=== PATIENT | male | born 1980 | race African-American/Black ===

== ENCOUNTER 2018-04-09 01:23 | Inpatient (IN) | payer OTHER ==
[~2018-04-09] VITALS: Ht 170.2 cm; Wt 61.4 kg
--- NOTE | 2018-04-09 02:00 | NUR ---
PT BIBRA C/O GENERALIZED ABDOMINAL PAIN X1 DAY, +N/V/D. PT DENIES SOB, CHEST PAIN, HEADACHE, DIZZINESS. PT AAOX4. RESPIRATIONS EVEN AND UNLABORED. SKIN WARM AND INTACT. NO ACUTE DISTRESS NOTED AT THIS TIME. WILL CONTINUE TO MONITOR
[2018-04-09] MEDS ORDERED: ONDANSETRON HCL/PF 4 MG/2 ML VIAL ONE (02:22)
[2018-04-09] MEDS ORDERED: HYDROMORPHONE INJ 0.5 MG/0.5 ML SYRINGE ONE (02:23)
[2018-04-09] MEDS ORDERED: IV NS 0.9% 1,000 ML BAG IV ONE (02:30)
[2018-04-09] MEDS ORDERED: ONDANSETRON HCL/PF 4 MG/2 ML VIAL IVP ONE (02:30)
[2018-04-09] MEDS ORDERED: HYDROMORPHONE INJ 2 MG/ML DISP.SYRIN IV ONE (02:30)
--- NOTE | 2018-04-09 02:30 | NUR ---
PT UNABLE TO PROVIDE URINE SAMPLE AT THIS TIME, AWARE
--- NOTE | 2018-04-09 02:30 | NUR ---
IV INITIATED RIGHT AC 18G. LABS DRAWN FROM SITE. ATHLETIC FIELD CUSTODIAN AT BEDSIDE FOR BLOOD DRAW. IV INTACT AND PATENT, PLACED ON SALINE LOCK
[2018-04-09 02:38] LABS: BASOPHILS % (AUTO) 0.7 % (0.0-2.0); EOSINOPHILS % (AUTO) 2.2 % (0.0-6.0); HEMATOCRIT 48 % (39-51); HEMOGLOBIN 15.9 g/dL (13.5-17.5); LYMPHOCYTES % (AUTO) 28.4 % (20.0-44.0); MEAN CORPUSCULAR HGB CONC 33 g/dl (31.0-36.0); MEAN CORPUSCULAR VOLUME 87 fL (80-96); MONOCYTES # (AUTO) 0.5 /CMM (0.1-1.30); MONOCYTES % (AUTO) 7.5 % (2.0-12.0); NEUTROPHILS # (AUTO) 4.2 /CMM (1.8-8.9); NEUTROPHILS % (AUTO) 61.2 % (43.0-81.0); PLATELET COUNT (AUTO) 442 /CMM (150-450); RED BLOOD CELL COUNT(AUTO) 5.52 MIL/uL (4.5-6.0); WHITE BLOOD COUNT (AUTO) 6.9 K/uL (4.3-11.0)
[2018-04-09] MEDS ORDERED: CT SWABBABLE VALVE TRANS SET 1 EA INFUS.SET MC ONE (02:49)
[2018-04-09] MEDS ORDERED: IV NS 0.9% 250 ML IV ONE (02:49)
[2018-04-09] MEDS ORDERED: IOHEXOL-300 100 ML VIAL IV ONE (02:49)
[2018-04-09 02:53] LABS: ALBUMIN 3.6 g/dL (3.4-5.0); BILIRUBIN,DIRECT 0.1 mg/dL (0.0-0.2); BILIRUBIN,TOTAL 0.3 mg/dL (0.2-1.0); CALCIUM, SERUM 9.2 mg/dL (8.5-10.1); CREATININE 0.8 mg/dL (0.6-1.3); POTASSIUM 3.9 mmol/L (3.5-5.1); TOTAL PROTEIN, SERUM 7.9 g/dL (6.4-8.2)
--- NOTE | 2018-04-09 03:13 | NUR ---
PT BROUGHT BY RADIOLOGY FOR CT
--- NOTE | 2018-04-09 03:20 | NUR ---
PT UNABLE TO PROVIDE URINE SAMPLE AT THIS TIME, AWARE
--- NOTE | 2018-04-09 04:21 | NUR ---
PT UNABLE TO PROVIDE URINE SAMPLE AT THIS TIME. MD RODNEY
[2018-04-09] MEDS ORDERED: PIPERACILLIN /TAZOBACTAM 3.375 G in IV D5W 50 ML IV ONE (05:00)
[2018-04-09] MEDS ORDERED: PIPERACILLIN /TAZOBACTAM 3.375 G VIAL IV ONE (05:24)
[2018-04-09] MEDS ORDERED: MAGNESIUM HYDROXIDE 30 ML UDC PO PRN (05:30)
[2018-04-09] MEDS ORDERED: METRONIDAZOLE 500MG/ NS 100ML 500 MG in PREMIX 1 EA IV SCH ×2 (05:30→18:00)
[2018-04-09] MEDS ORDERED: ONDANSETRON HCL/PF 4 MG/2 ML VIAL IVP PRN (05:30)
[2018-04-09] MEDS ORDERED: ZOLPIDEM TARTRATE 5 MG TABLET PO PRN (05:30)
[2018-04-09] MEDS ORDERED: MAG HYDROX/AL HYDROX/SIMETH 30 ML UDC PO PRN (05:30)
[2018-04-09] MEDS ORDERED: HYDROCODONE/APAP 5/325MG 1 EACH TABLET PO PRN (05:30)
[2018-04-09] MEDS ORDERED: ACETAMINOPHEN 325 MG TABLET PO PRN (05:30)
[2018-04-09] MEDS ORDERED: HYDROMORPHONE INJ 2 MG/ML DISP.SYRIN IV PRN (05:30)
[2018-04-09 05:56] LABS: MAGNESIUM 1.7 mg/dL (1.8-2.4); PHOSPHORUS 3.8 mg/dL (2.5-4.9)
--- NOTE | 2018-04-09 06:21 | NUR ---
GAVE REPORT TO MIRANDA MILTON FOR JACI
--- NOTE | 2018-04-09 06:30 | NUR ---
PT TRANSFERRED VIA GURNEY TO [facility] WITH EMT
[2018-04-09 07:00] VITALS: BP 120/67
--- NOTE | 2018-04-09 07:30 | NUR ---
RN OPENING NOTES RECEIVED PATIENT ASLEEP IN BED, EASILY AROUSABLE. A/OX4 ABLE TO MAKE NEEDS KNOWN. TOLERATING ROOM AIR. NOT IN ANY FORM OF DISTRESS. NO SOB. NO COMPLAINTS OF PAIN OR DISCOMFORT AT THIS TIME. IV ACCESS INTACT AND PATENT, IVF NS @ 100ML/HR. PATIENT SAID HE HAS NO WOUNDS, REFUSED BODY CHECK AND PHOTOS FOR NOW. PER PATIENT, "LET ME REST FOR NOW MAN!". ADMITTING ORDERS NOTED AND WILL CARRY OUT. BED IN LOW/LOCKED, BED IN LOW/LOCKED POSITION, SIDERAILS UPX2, CALL LIGHT IN REACH. WILL CONTINUE TO MONITOR ACCORDINGLY.
[2018-04-09 08:00] VITALS: BP 109/68
[2018-04-09] MEDS: IV NS 0.9% 1,000 ML IV PRN (08:43)
[2018-04-09] MEDS: PANTOPRAZOLE 40 MG VIAL IV SCH (08:54)
--- NOTE | 2018-04-09 09:00 | NUR ---
RN NOTES THERE'S NO BELONGINGS CHECKLIST FROM ER. NEW CHECKLIST DONE. PATIENT AGREED TO CHECK HIS BELONGINGS. FORM SIGNED
[2018-04-09] MEDS: METRONIDAZOLE 500MG/ NS 100ML 500 MG in PREMIX 1 EA IV SCH ×2 (10:28→17:17)
--- NOTE | 2018-04-09 11:10 | NUR ---
Social service consult requested by GEOVANNA Maza for homelessness. Pt. is a 37 year old male who was admitted to [facility] for Enterocolitis. Pt. has a history of asthma and "colitis" 2 years ago and who presented to the emergency Department complaining of 24 hours of abdominal pain with associated vomiting and diarrhea. SW met with pt. bedside. Pt. is alert and oriented x 4. Pt's appearance is clean. Pt. had the hospital gown over his clothes. Pt's speech is calm. Pt. is pleasant and cooperative with SW. Pt. states he is homeless. Pt. is originally from [place]. Pt. states he has been homeless for the past three years. Pt. receives [employer] and [employer] [place] monthly. 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 Pt. denies alcohol use. Pt. uses marijuana daily and smokes 1/2 pack of cigarettes per day. [facility] offered pt. referrals to drug treatment programs, however pt. declined stating, " it's not that serious." [facility] offered pt. winter prison placement. Pt. states, " I do not like the shelters, but I will take the resources." SW to give pt. Homeless Patient resources and winter prison placement resources prior to discharge. Homeless Patient Waiver Form to be signed by pt. upon discharge. Pt. will require TAP card upon D/C. No other social service needs are required at this time. SW is available, if needed. [facility] updated Med Surg 3 NICOLETTE Schwartz and bilingual patient support caseworker Selina Braswell regarding pt's discharge plan.
[2018-04-09] MEDS: Magnesium 1GM/D5W 100ML PREMIX 100 ML IV SCH ×3 (11:51→14:30)
[2018-04-09 13:45] LABS: APPEARANCE,URINE CLEAR (CLEAR); BILIRUBIN,URINE NEGATIVE (NEGATIVE); BLOOD, URINE NEGATIVE Ery/uL (NEGATIVE); COLOR,URINE YELLOW (YELLOW); KETONES,URINE NEGATIVE (NEGATIVE); LEUKOCYTE ESTERASE ,URINE NEGATIVE (NEGATIVE); NITRITE, URINE NEGATIVE (NEGATIVE); PH,URINE 5.5 (5.0-8.0); PROTEIN,URINE NEGATIVE (NEGATIVE); UGLUCOSE NEGATIVE (NEGATIVE); UROBILINOGEN,URINE 0.2 EU/dL (0.2)
[2018-04-09 16:00] VITALS: BP 140/85
--- NOTE | 2018-04-09 19:05 | NUR ---
RN MS NOTES RECEIVED PATIENT IN BED AWAKE ALERT AND ORIENTED X4, ABLE TO MAKE NEEDS KNOWN, RESPIRATIONS EVEN AND UNLABORED WITH EQUAL RISE AND FALL OF CHEST, DENIES ANY PAIN OR DISCOMFORT AT THIS TIME, REFUSES BODY ASSESSMENT AND PICTURES AT THIS TIME, WILL CONTINUE TO TRY TO ASSESS, IV SITE TO RIGHT AC#18G INTACT AND PATENT, NO REDNESS, NO INFILTRATION PRESENT,IVF RUNNING ORDERED,PATIENT MADE AWARE NEED TO COLLECT STOOL VERBALIZES HE UNDERSTANDS.CALL LIGHT KEPT WITHIN REACH, ALL NEEDS ATTENDED AT THIS TIME, ORIENTED TO STAFF, SAFETY PRECAUTIONS IN PLACE, LOW BED AND LOCKED, BED ALARM IN PLACE, REMAINS COMFORTABLE AT THIS TIME, WILL CONTINUE TO MONITOR AND ATTEND TO NEEDS.
--- NOTE | 2018-04-09 19:37 | NUR ---
RN CLOSING NOTES PATIENT IN STABLE CONDITION. ALL NEEDS ATTENDED AND PROVIDED. ALL DUE MEDICATIONS ADMINISTERED ORDERED. KEPT PATIENT SAFE AN COMFORTABLE. BED IN LOW/LOCKED POSITION, SIDERAILS UPX2, CALL LIGHT IN REACH. ENDORSED TO NIGHT RN FOR JACI.
[2018-04-09 20:00] VITALS: BP 120/61
[2018-04-09 20:07] VITALS: BP 120/61
[2018-04-10] MEDS: METRONIDAZOLE 500MG/ NS 100ML 500 MG in PREMIX 1 EA IV SCH ×3 (00:33→17:30)
[2018-04-10] MEDS: IV NS 0.9% 1,000 ML IV PRN ×2 (00:34→22:01)
[2018-04-10 06:16] LABS: BASOPHILS % (AUTO) 0.5 % (0.0-2.0); EOSINOPHILS % (AUTO) 2.8 % (0.0-6.0); HEMATOCRIT 38 % (39-51); HEMOGLOBIN 13.2 g/dL (13.5-17.5); LYMPHOCYTES # (AUTO) 2.3 /CMM (0.8-4.8); LYMPHOCYTES % (AUTO) 39.1 % (20.0-44.0); MEAN CORPUSCULAR HGB CONC 35 g/dl (31.0-36.0); MEAN CORPUSCULAR VOLUME 86 fL (80-96); MONOCYTES # (AUTO) 0.5 /CMM (0.1-1.30); MONOCYTES % (AUTO) 8.3 % (2.0-12.0); NEUTROPHILS # (AUTO) 2.9 /CMM (1.8-8.9); NEUTROPHILS % (AUTO) 49.3 % (43.0-81.0); PLATELET COUNT (AUTO) 380 /CMM (150-450); RED BLOOD CELL COUNT(AUTO) 4.47 MIL/uL (4.5-6.0); WHITE BLOOD COUNT (AUTO) 5.9 K/uL (4.3-11.0)
--- NOTE | 2018-04-10 06:25 | NUR ---
RN MS CLOSING NOTES PATIENT IN BED AWAKE ALERT AND ORIENTED X4, ABLE TO MAKE NEEDS KNOWN, RESPIRATIONS EVEN AND UNLABORED WITH EQUAL RISE AND FALL OF CHEST, DENIES ANY PAIN OR DISCOMFORT AT THIS TIME, UPON CHANGING NO WOUNDS NOTED TO SACRAL AREA OR FEET, IV SITE TO RIGHT AC#18G INTACT AND PATENT, NO REDNESS, NO INFILTRATION PRESENT,IVF RUNNING ORDERED,UNABLE TO COLLECT STOOL NO BM THIS SHIFT, URINAL AT BEDSIDE,CALL LIGHT KEPT WITHIN REACH, ALL NEEDS ATTENDED AT THIS TIME, SAFETY PRECAUTIONS IN PLACE, LOW BED AND LOCKED, BED ALARM IN PLACE, REMAINS COMFORTABLE AT THIS TIME, WILL CONTINUE TO MONITOR AND ENDORSE TO NEXT SHIFT.
[2018-04-10 06:32] LABS: ALBUMIN 2.7 g/dL (3.4-5.0); BILIRUBIN,TOTAL 0.2 mg/dL (0.2-1.0); CALCIUM, SERUM 8.1 mg/dL (8.5-10.1); CREATININE 0.8 mg/dL (0.6-1.3); MAGNESIUM 1.7 mg/dL (1.8-2.4); POTASSIUM 3.9 mmol/L (3.5-5.1); TOTAL PROTEIN, SERUM 6.2 g/dL (6.4-8.2)
--- NOTE | 2018-04-10 07:16 | NUR ---
MS RN NOTES PATIENT IN BED EYES CLOSED, EASY TO AROUSE. NO ACUTE DISTRESS NOTED. BREATHING UNLABORED. DENIED ANY PAIN AT THIS TIME. IV ACCESS PATENT AND INTACT, NO REDNESS NO SWELLING NOTED. SAFETY MEASURES IN PLACE. CALL LIGHT WITHIN REACH. WILL CONTINUE TO MONITOR ACCORDINGLY.
--- NOTE | 2018-04-10 07:34 | NUR ---
RN MS NOTES CALLED AND SPOKE TO DR. FONSECA REPORTED MAG LEVEL 1.7L WITH NEW ORDER MAGNESIUM SULFATE 1GM IV. ORDER READ BACK, NOTED AND CARRIED OUT WILL ENDORSE TO NEXT SHIFT NURSE.
[2018-04-10 08:00] VITALS: BP 144/88
[2018-04-10] MEDS ORDERED: Magnesium 1GM/D5W 100ML PREMIX 100 ML IV SCH ×2 (08:00→09:36)
[2018-04-10] MEDS: PANTOPRAZOLE 40 MG VIAL IV SCH (08:25)
[2018-04-10] MEDS: methylPREDNISolone SOD SUCC 40 MG/ML VIAL IV SCH (08:27)
--- NOTE | 2018-04-10 09:36 | NUR ---
MS RN NOTES SEEN AND EVALUATED BY DR MARIAN VICENTE WITH NEW ORDERS MADE, NOTED AND CARRIED OUT.
[2018-04-10] MEDS: LEVOFLOXACIN 750 MG /D5W 150ML 750 MG in PREMIX 1 EA IV SCH (15:23)
[2018-04-10 16:00] VITALS: BP 126/70
--- NOTE | 2018-04-10 19:00 | NUR ---
RN MS OPENING NOTES RECEIVED PATIENT IN BED, AWAKE ALERT AND ORIENTED X4, RESPIRATIONS EVEN AND UNLABORED WITH EQUAL RISE AND FALL OF CHEST, DENIES ANY PAIN OR DISCOMFORT AT THIS TIME, ORIENTED TO STAFF AND CALL LIGHT AND KEPT WITHIN REACH, SAFETY PRECAUTIONS IN PLACE, LOW BED AND LOCKED, BED ALARM IN PLACE FOR FALL PRECAUTIONS, URINAL AT BEDSIDE AND OFFERED, FLUID OFFERED, IV SITE TO RIGHT AC#18G INTACT AND PATENT, NO REDNESS, NO INFILTRATION PRESENT, IVF RUNNING ORDERED, ALL NEEDS ATTENDED AT THIS TIME, WILL CONTINUE TO MONITOR AND ATTEND TO NEEDS.
--- NOTE | 2018-04-10 19:00 | NUR ---
MS RN NOTES PATIENT IN BED ALERT ORIENTED X3. NO ACUTE DISTRESS NOTED. BREATHING UNLABORED. DENIED ANY PAIN AT THIS TIME. IV ACCESS PATENT AND INTACT, NO REDNESS NO SWELLING NOTED.DUE MEDICATIONS GIVEN, NO ASE NOTED. NEEDS ATTENDED AND ANTICIPATED. SAFETY MEASURES IN PLACE. CALL LIGHT WITHIN REACH.ENDORSED TO NIGHT NURSE FOR CONTINUITY OF CARE.
--- NOTE | 2018-04-10 19:33 | NUR ---
RN MS NOTES PATIENT COMPLAINT OF FEELING HEART BURN INDIGESTION OFFERED MAALOX PRN AGREED TO TAKE WILL CONTINUE TO MONITOR.
[2018-04-10 20:00] VITALS: BP 126/78
[2018-04-11] MEDS: METRONIDAZOLE 500MG/ NS 100ML 500 MG in PREMIX 1 EA IV SCH ×2 (01:12→09:27)
--- NOTE | 2018-04-11 06:21 | NUR ---
RN MS CLOSING NOTES PATIENT IN BED, AWAKE ALERT AND ORIENTED X4, RESPIRATIONS EVEN AND UNLABORED WITH EQUAL RISE AND FALL OF CHEST, DENIES ANY PAIN OR DISCOMFORT AT THIS TIME,PERINEAL AND BED BATH GIVEN , CALL LIGHT KEPT WITHIN REACH, SAFETY PRECAUTIONS IN PLACE, LOW BED AND LOCKED, BED ALARM IN PLACE FOR FALL PRECAUTIONS, URINAL AT BEDSIDE AND OFFERED, FLUIDS OFFERED, IV SITE TO RIGHT AC#18G INTACT AND PATENT, NO REDNESS, NO INFILTRATION PRESENT, IVF RUNNING ORDERED, ALL NEEDS ATTENDED AT THIS TIME, WILL CONTINUE TO MONITOR AND ATTEND TO NEEDS AND ENDORSE TO NEXT SHIFT. NO BM THIS SHIFT.
[2018-04-11 06:25] LABS: BASOPHILS # (AUTO) 0.1 /CMM (0.0-0.2); BASOPHILS % (AUTO) 0.6 % (0.0-2.0); EOSINOPHILS % (AUTO) 0.7 % (0.0-6.0); HEMATOCRIT 39 % (39-51); HEMOGLOBIN 13.3 g/dL (13.5-17.5); LYMPHOCYTES # (AUTO) 2.5 /CMM (0.8-4.8); LYMPHOCYTES % (AUTO) 24.2 % (20.0-44.0); MEAN CORPUSCULAR HGB CONC 34 g/dl (31.0-36.0); MEAN CORPUSCULAR VOLUME 86 fL (80-96); MONOCYTES # (AUTO) 0.7 /CMM (0.1-1.30); MONOCYTES % (AUTO) 6.7 % (2.0-12.0); NEUTROPHILS # (AUTO) 7.1 /CMM (1.8-8.9); NEUTROPHILS % (AUTO) 67.8 % (43.0-81.0); PLATELET COUNT (AUTO) 385 /CMM (150-450); RED BLOOD CELL COUNT(AUTO) 4.54 MIL/uL (4.5-6.0); WHITE BLOOD COUNT (AUTO) 10.5 K/uL (4.3-11.0)
[2018-04-11 06:40] LABS: CALCIUM, SERUM 8.6 mg/dL (8.5-10.1); CREATININE 0.9 mg/dL (0.6-1.3); MAGNESIUM 1.9 mg/dL (1.8-2.4); PHOSPHORUS 3.2 mg/dL (2.5-4.9); POTASSIUM 4.1 mmol/L (3.5-5.1)
[2018-04-11 08:00] VITALS: BP 134/80
[2018-04-11] MEDS: PANTOPRAZOLE 40 MG VIAL IV SCH (09:22)
[2018-04-11] MEDS: methylPREDNISolone SOD SUCC 40 MG/ML VIAL IV SCH (09:26)
--- NOTE | 2018-04-11 10:39 | NUR ---
MS RN NOTES SEEN AND EVALUATED BY DR MARIAN MINOR WITH NEW ORDERS MADE, NOTED AND CARRIED OUT.
[2018-04-11] MEDS ORDERED: METR500T PO (10:40)
[2018-04-11] MEDS ORDERED: LEVO750T21 PO (10:40)
[2018-04-11 12:10] LABS: *ANCANTIMYELOPEROXIDASE (MPO) <9.0 U/mL (0.0-9.0); *ANCANTIPROTEINASE 3 (PR-3) AB <3.5 U/mL (0.0-3.5)
[2018-04-11] MEDS: LEVOFLOXACIN 750 MG /D5W 150ML 750 MG in PREMIX 1 EA IV SCH (14:00)
--- NOTE | 2018-04-11 14:00 | NUR ---
MS RN NOTES PATIENT REFUSED LEVAQUIN IV ADMINISTRATION DESPITE OF EXPLANATION OF RISK AND BENEFITS.
--- NOTE | 2018-04-11 14:07 | NUR ---
SW received a call from pt's RN Lizbeth, informing SW that pt. is being discharged today, however pt. is upset and refusing to leave. SW met with pt. bedside. Pt. is alert and oriented x4. Pt. appeared upset stating the doctor has not seen him to explain to him his medical condition. Per RN Lizbeth, Dr. Gregg did visit the pt. this AM, however, pt was sleeping. Pt. informed SW that he needs a pair of pants and that when staff cleaned out his pants, they threw his EBT card by mistake. Pt. was upset about it. SW provided active listening and emotional support the the pt. Pt. receives General Relief and food stamps. SW gave pt. a pair of jeans. Pt. is willing to go to the [facility] [id number] [place] [address] program for [facility]. 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 Pt. was provided with [facility] [phone] [facility] program list; substance abuse referrals, mental health clinic referrals and health clinics for the homeless. TAP card was provided to the pt. Homeless Patient Waiver Form was signed by the pt. and placed in pt's chart. No other social service needs are requested at this time. SW is available, if needed.
[2018-04-11 14:15] LABS: *ANCA ATYPICAL p-ANCA <1:20 titer (Neg:<1:20); *ANCA CYTOPLASMIC (C-ANCA) <1:20 titer (Neg:<1:20); *ANCA PERINUCLEAR (P-ANCA) <1:20 titer (Neg:<1:20)
--- NOTE | 2018-04-11 15:11 | NUR ---
MS RN NOTES PATIENT DISCHARGED WITH STABLE VITAL SIGNS, AMBULATORY, NO ACUTE DISTRESS NOTED. BREATHING UNLABORED.NO SOB NOTED.DENIED ANY PAIN. ALERT ORIENTED X 4. DISCHARGE INSTRUCTIONS GIVEN TO THE PATIENT INCLUDING FOLLOW UP WITH PRIMARY DOCTOR AND NEW PRESCRIPTION GIVEN, VERBALIZED UNDERSTANDING. ALL BELONGINGS ACCOUNTED FOR. IV ACCESS REMOVED, NO BLEEDING, NO REDNESS, NO SWELLING NOTED. REFUSED BODY ASSESSMENT. ASSISTED TO THE LOBBY. DISCHARGED IN STABLE CONDITION. RESOURCES GIVEN BY WAFER SLICER.
== END 2018-04-11 15:30 | disposition home or self-care (01) | DRG 249 ==
LOC: ER 01:27 → MED 05:20
DX: A08.4 Viral intestinal infection, unspecified (principal); E83.42 Hypomagnesemia; K51.90 Ulcerative colitis, unspecified, without complications; F10.20 Alcohol dependence, uncomplicated; J45.909 Unspecified asthma, uncomplicated; Z59.0 Homelessness; Y90.9 Presence of alcohol in blood, level not specified; F19.10 Other psychoactive substance abuse, uncomplicated
CPT/HCPCS: 36415; 80048-TC; 80053-TC; 80061-TC; 80076-TC; 81000-TC; 83520; 83605-TC; 83690-TC; 83735-TC; 84100-TC; 85025-TC; 85730-TC; 86256; 87081-TC; A4216; C9113; G0378; J1956; J2405; J2543; J2920; J3475; J3490; J7030; J7050; J7060; Q9967

== ENCOUNTER 2021-09-06 11:40 | Emergency (ER) | payer OTHER ==
[~2021-09-06] VITALS: Ht 177.8 cm; Wt 62.6 kg
[2021-09-06 11:40] VITALS: BP 136/69
[~2021-09-06 11:40] MED LIST: LEVO750T21 PO; METR500T PO
--- NOTE | 2021-09-06 12:00 | NUR ---
TO ER 15 AWAITING LUZ TRUONG AT BEDSIDE
[2021-09-06] MEDS ORDERED: AZIT250T13 PO (12:22)
--- NOTE | 2021-09-06 12:36 | NUR ---
PT SEEN AND EVALUATED BY [facility]. DISCHARGED TO [facility] IN STABLE CONDITION.
== END 2021-09-06 12:38 ==
LOC: ER 11:44
DX: Z02.89 Encounter for other administrative examinations (principal); J45.909 Unspecified asthma, uncomplicated; Z88.0 Allergy status to penicillin; Z60.2 Problems related to living alone

== ENCOUNTER 2022-02-17 01:10 | Emergency (ER) | payer MEDICAID, OTHER ==
[~2022-02-17] VITALS: Ht 170.2 cm; Wt 59.0 kg
[~2022-02-17 01:10] MED LIST changes: +AZIT250T13 PO
[2022-02-17 01:13] VITALS: BP 148/80
[2022-02-17] MEDS ORDERED: ONDANSETRON HCL/PF 4 MG/2 ML VIAL ONE (01:23)
--- NOTE | 2022-02-17 01:27 | NUR ---
PATIENT BEING VERY AGGRESSIVE TO ALL STAFF REFUSING TO SPEAK TO MD.
--- NOTE | 2022-02-17 01:27 | NUR ---
PATIENT LEFT WITHOUT BEING SEEN.
[2022-02-17] MEDS ORDERED: IV NS 0.9% 1,000 ML BAG IV ONE (01:30)
[2022-02-17] MEDS ORDERED: ONDANSETRON HCL/PF 4 MG/2 ML VIAL IVP ONE (01:30)
== END 2022-02-17 02:00 | disposition left against medical advice (07) ==
LOC: ER 01:14
DX: Z53.21 Procedure and treatment not carried out due to patient leaving prior to being seen by health care provider (principal); J45.909 Unspecified asthma, uncomplicated; K52.9 Noninfective gastroenteritis and colitis, unspecified; Z60.2 Problems related to living alone; Z88.0 Allergy status to penicillin
CPT/HCPCS: J2405; J7030